=== PATIENT | male | born 1965 | race Caucasian/White ===

== ENCOUNTER 2017-07-17 04:05 | Inpatient (IN) | payer OTHER ==
[~2017-07-17] VITALS: Ht 177.8 cm; Wt 124.7 kg
[2017-07-17 04:11] VITALS: BP 106/79
[2017-07-17] MEDS ORDERED: NAPROSYN500 MG PO (04:23)
[2017-07-17 04:39] LABS: ABSOLUTE BASOPHILS 0.1 thou/uL (0.0-0.2); ABSOLUTE EOSINOPHILS 0.3 thou/uL (0.0-0.7); ABSOLUTE LYMPHOCYTES 1.7 thou/uL (0.8-5.3); ABSOLUTE MONOCYTES 0.6 thou/uL (0.0-1.2); ABSOLUTE NEUTROPHILS 3.3 thou/uL (1.6-8.1); BASOPHILS 1.4 %; EOSINOPHILS 5.1 %; HEMATOCRIT 44.8 % (42.0-52.0); HEMOGLOBIN 15.2 gm/dL (14.0-18.0); LYMPHOCYTES 28.6 %; MCH 29.2 pg (26.0-34.0); MCV 85.7 fL (80.0-100.0); MONOCYTES 10.6 %; MPV 7.9 fl. (7.2-11.1); NUCLEATED RBCS 0 /100WBC; PLATELET COUNT* 189 thou/uL (150-400); POLYS 54.3 %; RBC 5.22 mil/uL (4.50-6.00); RDW-CV 13.6 % (10.5-14.5)
[2017-07-17 04:48] LABS: CALCIUM 8.5 mg/dL (8.5-10.1); POTASSIUM 3.6 mmol/L (3.5-5.1)
[2017-07-17 04:52] LABS: ALBUMIN 3.6 g/dL (3.4-5.0); TOTAL BILIRUBIN 0.4 mg/dL (<0.1-1.0); TOTAL PROTEIN 7.4 g/dL (6.4-8.2)
[2017-07-17 04:58] LABS: APTT 28.9 Seconds (25.0-31.3); PROTIME 9.6 Seconds (9.20-11.50)
[2017-07-17 05:40] VITALS: BP 117/60
[2017-07-17 06:51] VITALS: BP 146/88
--- NOTE | 2017-07-17 07:28 | NUR ---
PT ARRIVED ON UNIT FROM ER AT 0600 PT ALERT AND ORIENTED X4 VS AND ASSESSMENT STABLE , ASSISSTED TO ROOM ORIENTED TO SURROUNDINGS WILL MONITOR.
[2017-07-17 08:30] VITALS: BP 120/60
[2017-07-17 11:16] LABS: CHOLESTEROL 207 mg/dL (<200); HDL CHOLESTEROL 28 mg/dL (>40); LDL CHOLESTEROL 130 mg/dL (<100); TC:HDL 7.4 Ratio (Not establshd); TRIGLYCERIDE 249 mg/dL (<150); VLDL 50 mg/dL (<40)
[2017-07-17 11:18] LABS: CALCIUM 8.2 mg/dL (8.5-10.1); POTASSIUM 3.6 mmol/L (3.5-5.1)
[2017-07-17 11:20] LABS: SERUM ASSESSMENT Clear
[2017-07-17 16:00] VITALS: BP 117/68
--- NOTE | 2017-07-17 17:16 | NUR ---
ASSUMED CARES OF PT AT 0700. PT IN BED ASLEEP WITH IN BEDSIDE CHAIR. BED IN LOW AND LOCKED POSITION. CALL BUTTON AND PERSONAL ITEMS IN PT REACH. PT A&O X4, HRRR PER AUSCULTATION, LCTAB, AFEBRILE, PERRL, VSS ON RA. LEFT LEG WITH SCAB AND REDNESS, WARM TO TOUCH. IV IN RIGHT AC PATENT AND PT TOLERATING IV ABT. PT UP AT CHERISE TO BATHROOM. SCATTERED SCARS AND BRUISING NOTED, NO EDEMA. GOOD APPETITE/REGULAR DIET. WOUND CARE CONSULTED. WILL CONTINUE TO MONITOR PT PROGRESS.
[2017-07-17 20:00] VITALS: BP 119/63
--- NOTE | 2017-07-17 20:35 | NUR ---
REPORT TO OVEN DRIER TENDER FOR CONTINUED CARES. PT REMAINS STABLE, VSS, PT HEADACHE RESOLVED WITH TYLENOL. PT NON COMPLIANT WITH IV. EDUCATION REPEATED TO PATIENT AND SPOUSE, REMAIN NON COMPLIANT TO NOTIFY STAFF WHEN IV BEEPS/STOPS, THIS RESULTED IN IV TREATMENT TAKING LONGER THAN ORDERED. PT SLEPT MOST OF SHIFT WITH SLEEPING IN RECLINER CHAIR NEXT TO BED. HOURLY ROUNDING COMPLETED.
[2017-07-18 02:10] LABS: GLYCOHEMOGLOBIN (HGB A1C) 5.5 % (4.8-5.6)
[2017-07-18 05:11] LABS: ABSOLUTE EOSINOPHILS 0.3 thou/uL (0.0-0.7); ABSOLUTE LYMPHOCYTES 1.3 thou/uL (0.8-5.3); ABSOLUTE MONOCYTES 0.4 thou/uL (0.0-1.2); ABSOLUTE NEUTROPHILS 2.9 thou/uL (1.6-8.1); BASOPHILS 0.8 %; EOSINOPHILS 5.6 %; HEMATOCRIT 44.8 % (42.0-52.0); HEMOGLOBIN 14.9 gm/dL (14.0-18.0); MCH 28.6 pg (26.0-34.0); MCHC 33.3 g/dL (28.0-37.0); MCV 85.9 fL (80.0-100.0); MONOCYTES 7.6 %; MPV 8.6 fl. (7.2-11.1); NUCLEATED RBCS 0 /100WBC; PLATELET COUNT* 188 thou/uL (150-400); RBC 5.21 mil/uL (4.50-6.00); RDW-CV 13.5 % (10.5-14.5); WBC 4.9 thou/uL (4.0-11.0)
--- NOTE | 2017-07-18 05:27 | NUR ---
ASSUMED CARE OF PT AT 1900 PT ALERT AND ORIENTED X 4. VS AND ASSESSMENT STABLE. CONTINUES ON IV ABX FOR CELLULITIS. PT VOICED NO COMPLAINTS AND STAYED UP MOST OF THE NIGHT WATCHING TV, PT STATED HE WORKS NIGHTS. WILL MONITOR
[2017-07-18 05:29] LABS: CALCIUM 8.4 mg/dL (8.5-10.1); CREATININE 0.9 mg/dL (0.6-1.3); POTASSIUM 4.3 mmol/L (3.5-5.1)
[2017-07-18 09:00] VITALS: BP 114/66
[2017-07-18 15:34] VITALS: BP 96/73
[2017-07-18 20:00] VITALS: BP 126/58
--- NOTE | 2017-07-19 04:45 | NUR ---
ASSUMED CARE OF PT AT 1900 PT ALERT AND ORIENTED X4 VS AND ASSESSMENT STABLE. PTS CELLULITIS ON THE L LEG IS LESSENING. PT DENIED ANY COMPLAINTS AND SLEPT THROGH THE NIGHT. WILL MONITOR
[2017-07-19 05:50] LABS: ABSOLUTE EOSINOPHILS 0.4 thou/uL (0.0-0.7); ABSOLUTE LYMPHOCYTES 1.4 thou/uL (0.8-5.3); ABSOLUTE MONOCYTES 0.4 thou/uL (0.0-1.2); ABSOLUTE NEUTROPHILS 3.5 thou/uL (1.6-8.1); BASOPHILS 0.7 %; EOSINOPHILS 6.7 %; HEMATOCRIT 43.4 % (42.0-52.0); HEMOGLOBIN 14.7 gm/dL (14.0-18.0); LYMPHOCYTES 24.8 %; MCH 28.7 pg (26.0-34.0); MCHC 33.9 g/dL (28.0-37.0); MCV 84.8 fL (80.0-100.0); MONOCYTES 6.6 %; MPV 8.8 fl. (7.2-11.1); NUCLEATED RBCS 0 /100WBC; PLATELET COUNT* 200 thou/uL (150-400); POLYS 61.2 %; RBC 5.12 mil/uL (4.50-6.00); RDW-CV 13.3 % (10.5-14.5); WBC 5.8 thou/uL (4.0-11.0)
[2017-07-19 06:00] LABS: CALCIUM 8.7 mg/dL (8.5-10.1); CREATININE 0.9 mg/dL (0.6-1.3); POTASSIUM 3.8 mmol/L (3.5-5.1)
[2017-07-19 08:00] VITALS: BP 138/86
--- NOTE | 2017-07-19 14:13 | NUR ---
SW met with pt to complete initial assessment, introduce self, and SW role. Pt alert, oriented, talkative and joking. Pt reported that he was able to take care of himself at home and that his , Karen, also provided assistance as needed. Pt father also lives in the home. Pt did not express any needs or concerns at this time. SW to continue to follow to assist with safe dc planning.
[2017-07-19 16:00] VITALS: BP 124/80
--- NOTE | 2017-07-19 17:11 | NUR ---
PT UP IN HALLS WITH STEADY GAIT. LLE LESS REDNESS IMPROVED. PT DENIES PAIN. TOLERATING PO WELL
[2017-07-20 00:05] VITALS: BP 112/70
[2017-07-20 00:58] LABS: URINE BILIRUBIN NEGATIVE (Negative); URINE BLOOD NEGATIVE (Negative); URINE CLARITY CLEAR; URINE COLOR STRAW; URINE GLUCOSE-RANDOM NEGATIVE (Negative); URINE KETONES NEGATIVE (Negative); URINE LEUKOCYTES-REFLEX NEGATIVE (Negative); URINE NITRITE-REFLEX NEGATIVE (Negative); URINE PROTEIN NEGATIVE (Negative); URINE UROBILINOGEN 0.2 E.U./dl (0.2-1.0)
[2017-07-20 04:09] LABS: HEMATOCRIT 43.4 % (42.0-52.0); HEMOGLOBIN 14.7 gm/dL (14.0-18.0); MCV 85.3 fL (80.0-100.0); MPV 8.4 fl. (7.2-11.1); NUCLEATED RBCS 0 /100WBC; PLATELET COUNT* 208 thou/uL (150-400); RBC 5.09 mil/uL (4.50-6.00); RDW-CV 13.3 % (10.5-14.5); WBC 5.9 thou/uL (4.0-11.0)
[2017-07-20 04:51] LABS: CALCIUM 8.7 mg/dL (8.5-10.1); CREATININE 1.2 mg/dL (0.6-1.3); POTASSIUM 4.2 mmol/L (3.5-5.1)
--- NOTE | 2017-07-20 05:44 | NUR ---
PT SLEPT OFF AND ON OVERNIGHT. DENIES PAIN. RAC SL, LHAND SL, IV ABX GIVEN ORDERED. UP AD CHERISE IN HALLS. BACTROBAN CREAM APPLIED TO LLEG AND DRESSING TO WOUND ON L KNEE, PT DID NOT LEAVE ON. WARM KPAD TO LLEG FOR BRIEF PERIOD OVERNIGHT. AM LABS DRAWN THIS MORNING. UP TO BR TO VOID WITHOUT DIFFICULTY. ABLE TO USE CALL LITE AND MAKE NEEDS KNOWN.
[2017-07-20 07:23] LABS: ABSOLUTE EOSINOPHILS 0.4 thou/uL (0.0-0.7); ABSOLUTE LYMPHOCYTES 1.7 thou/uL (0.8-5.3); ABSOLUTE MONOCYTES 0.2 thou/uL (0.0-1.2); ABSOLUTE NEUTROPHILS 3.5 thou/uL (1.6-8.1); ANISOCYTOSIS 1+; PLATELET ESTIMATE ADEQUATE; POIKILOCYTOSIS 1+
[2017-07-20 07:35] VITALS: BP 139/89
[2017-07-20] MEDS ORDERED: MINOCIN100 MG PO (11:52)
[2017-07-20] MEDS ORDERED: LISINOPRIL10 MG PO (11:53)
[2017-07-20] MEDS ORDERED: LOVASTAT10 PO (11:55)
[2017-07-20 11:56] VITALS: BP 139/89
--- NOTE | 2017-07-20 12:32 | NUR ---
PATIENT A&OX4, ROOM AIR, IV LEFT HAND. UP AD CHERISE, STEADY GIAT. C/O HEADACHE, RELIEF WITH TYLENOL. IV DISCONTINUED, PATIENT BEING DISCHARGED. REVIEWED PAPERWORK AT THIS TIME. GAVE INFORMATION IN REGARDS TO OPTAINING A PRIMARY CARE PROVIDER. VERBALIZES UNDERSTANDING. D/C PHOTO TAKEN OF LEFT KNEE, PATIENT STATES SWELLING AND REDNESS HAS DECREASED. NO OTHER CONCERNS AT THIS TIME. LEFT UNIT AT 1225 AMBULATORY WITH NURSING STAFF WITH ALL BELONGIGNS, NOTHING LEFT BEHIND. APPROPRIATE AND COOPORATIVE WITH CARE.
--- NOTE | 2017-08-23 01:14 | CON ---
[address] [address] CONSULTATION Name: DAIN OLIVIA Room: [address] IN M.R.#: [id number] Admission: 07/17/17 Attend Phys: Katherine Hogan Discharge: 07/20/17 Date of : 65 Report #: [id number] THIS REPORT FOR: //name// CC: CHAR physician/PCP Yifan Abrams DATE OF SERVICE: 07/18/2017 CONSULTATION: Infectious diseases. HISTORY OF PRESENT ILLNESS: Mr Olivia is a 52-year-old white male admitted to [facility] 07/16/2017 complaining of redness and pain in his left lower extremity. The patient noted for the last 2-3 days, he is having increasing discomfort in his left leg. He reached a point where he could not even walk on it. He presented to the hospital and was started on IV antibiotic therapy with vancomycin and Levaquin. In spite of this therapy, he was not thought to be doing much better after 48 hours, so Infectious Disease consultation was requested. PAST MEDICAL HISTORY: Significant for hypertension and hyperlipidemia, but otherwise is unremarkable. SOCIAL HISTORY: The patient is . 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 He drives [employer]. He did smoke cigarettes in the past, but quit 17 years ago. Denies use of alcohol or drugs. REVIEW OF SYSTEMS: The patient has not been complaining of fevers, chills, sweats. The patient is not complaining of any head or neck complaints, no cough, chest pain, shortness of breath. No nausea, vomiting, diarrhea, constipation. He has no history of any urinary problems. He denies any trauma to the left leg. He does have a small eschar in the medial knee that he is not sure where this came from. He is not aware of any bite or other injury. He has pain in his left leg, particularly around the area of the knee. It is difficult to bear weight, but he has not much pain with flexion or extension. He is not having any drainage. PHYSICAL EXAMINATION: GENERAL: The patient appears his stated age, alert, oriented, comfortable, not in any distress. VITAL SIGNS: Show the patient has been afebrile since coming to the hospital. SKIN: Shows no rash, lesion or exanthem except the left leg as described below. ENT: Negative. HEART: Sounds normal. LUNGS: Clear. ABDOMEN: Belly obese, soft, not tender. EXTREMITIES: The arms and right leg are normal. [place] [id number] CONSULTATION Name: DAIN OLIVIA Room: [address] IN ..#: [id number] Admission: 07/17/17 Attend Phys: Katherine Hogan Discharge: 07/20/17 Date of : 65 Report #: [id number] erythema around the knee. It goes about 7 cm distal to the knee. There is a lymphangitic streak going towards the groin in the medial thigh. The area of erythema was marked out with an ink pen for comparison. The area is slightly warm as well as red. There appears to be some fluid in the knee, but the range of motion is still 0-140 degrees without any pain. There is no tenderness in the area. Distal pulses are unremarkable. The nails and capillary refill: Unremarkable. LABORATORY DATA: The white count is 4.9. Hemoglobin is 14.9, platelets 188,000, hemoglobin A1c is 5.5. Electrolytes, BUN and creatinine, liver function test, lactate and glucose were normal. There are no cultures. IMPRESSION: Cellulitis of the left leg, probably from some traumatic wound on the medial knee leaving the 1 cm eschar. I concur with the vancomycin as well as gram-negative coverage. Anticipate that the patient will probably respond after 24-48 hours of antibiotic therapy. We can consider using a heating pad to improve microcirculation and Bactroban under Xeroform for a topical antibiotic effect. The patient has remarkably little pain given the extent of the cellulitis. He has really no systemic signs such as fever or leukocytosis. He does not have clinical evidence to suggest septic arthritis. For now, we will continue the patient on broad-spectrum IV antibiotic therapy. Add topical antibiotic therapy and anticipate improvement in the next 24-48 hours. I appreciate the opportunity to offer input in the care of the patient. Dr. Gutierrez will return on Wednesday for additional followup. <ELECTRONICALLY SIGNED> By: Rayray Alan MD 08/23/17 [id number] Alan MD /nt
== END 2017-07-20 12:25 | disposition home or self-care (01) | DRG 603 ==
LOC: M.ERS 04:05 → M.3W 04:29 → M.TBA-ER 04:29 → M.3W 06:00
PROVIDERS: Emergency Medicine Emergency Medical Services; ADMIT Internal Medicine
DX: L03.116 Cellulitis of left lower limb (principal); I10 Essential (primary) hypertension; E78.5 Hyperlipidemia, unspecified; E83.51 Hypocalcemia; E66.9 Obesity, unspecified; Z68.39 Body mass index [BMI] 39.0-39.9, adult; Z87.891 Personal history of nicotine dependence